=== PATIENT | female | born 1970 | race Caucasian/White ===

== ENCOUNTER → 2018-04-09 | Outpatient (CLI) | payer OTHER ==
[~2018-04-09] MED LIST: ALPR-429 PO; ALPR-700 PO; BCAA PO; CALC1TAB32 PO; CHOL100034 PO; CIT20 PO; DOCU-416 PO; ESC10 PO; HYDR-385 PO; HYDR50CA47 PO; MAGN500C10 PO; MILK THISTLE140 M1 PO; MULT-977 PO; NICO1PAT45 TD; OMEG300C PO; OXYC-854 PO; PHYT100T4 PO; THRIVE PO; TRAZ-133 PO; VITA40TA PO; [UNRECOGNIZED DRUG - CODE] MC; [UNRECOGNIZED DRUG - CODE] PO; [UNRECOGNIZED DRUG - OTHER]; [UNRECOGNIZED DRUG - OTHER] PO; [UNRECOGNIZED DRUG - OTHER] PO
== END ==
LOC: AUD 13:00
PROVIDERS: ATTEND Family Medicine
DX: H93.19 Tinnitus, unspecified ear (principal)
CPT/HCPCS: 92557; 92570

== ENCOUNTER → 2018-05-30 | Outpatient (CLI) | payer OTHER ==
--- NOTE | 2018-05-30 13:28 | RADIOLOGY IMAGING REPORT ---
FACILITY: [facility] PATIENT NAME: ROSALIA WATKINS : [id number] MR: [id number] V: [id number] EXAM DATE: [id number] ORDERING PHYSICIAN: GO CADTE TECHNOLOGIST: Leatha Montes PROCEDURE:BILATERAL DIGITAL SCREENING MAMMOGRAM WITH CAD ASSISTED INTERPRETATION COMPARISON:None. INDICATIONS:SCREENING FINDINGS: Again noted are bilateral breast implants. There is no evidence of implant rupture or leakage. The breasts are extremely dense which lowers the sensitivity of mammography. There has been no significant interval change. DIAGNOSTIC CATEGORY 2--BENIGN FINDING. RECOMMENDATIONS: ROUTINE MAMMOGRAM AND CLINICAL EVALUATION. IMPRESSION: BIRADS 2: Benign finding. No significant abnormality is seen. Dictated by: Emmy Pablo M.D. on 05/30/2018 at 11:30 Transcribed by: LEANNA on 05/30/2018 at 13:09 Approved by: Emmy Pablo M.D. on 05/30/2018 at 13:27 [facility]
== END ==
LOC: MAMO 00:45
PROVIDERS: ATTEND Family Medicine
DX: Z12.31 Encounter for screening mammogram for malignant neoplasm of breast (principal); Z80.3 Family history of malignant neoplasm of breast
CPT/HCPCS: 77063; 77067

== ENCOUNTER → 2018-07-26 | Outpatient (CLI) | payer OTHER ==
--- NOTE | 2018-07-26 09:39 | RADIOLOGY IMAGING REPORT ---
FACILITY: [facility] [place] PATIENT NAME: Araceli Breen : 1970 MR: [id number] V: [id number] EXAM DATE: ORDERING PHYSICIAN: GO CADET TECHNOLOGIST: Location: [facility] - [place] Patient: Araceli Breen : 1970 Visit/Account:[id number] Date of Sevice: 07/26/2018 EXAMINATION: PA and Lateral Chest 07/26/2018 9:12 AM HISTORY: Elevated CEA level. Nonsmoker. COMPARISON: 04/15/2014 FINDINGS: Cardiomediastinal contours: Normal Lungs and pleura: Normal Bones/soft tissues: Normal IMPRESSION: Stable unremarkable chest. Report Dictated By: Sarthak Mcintosh MD at 07/26/2018 9:31 AM Report E-Signed By: Sarthak Mcintosh MD at 07/26/2018 9:33 AM WSN:[email or web address]
--- NOTE | 2018-07-26 11:27 | RADIOLOGY IMAGING REPORT ---
FACILITY: [facility] - [place] PATIENT NAME: Araceli Breen : 1970 MR: [id number] V: [id number] EXAM DATE: ORDERING PHYSICIAN: GO CADET TECHNOLOGIST: Location: [facility] [place] Patient: Araceli Breen : 1970 Visit/Account:[id number] Date of Sevice: 07/26/2018 Abdominal ultrasound Indication: Elevated CEA level. Comparison: None Findings: Liver is enlarged and measures 19.5 cm in greatest sagittal length. Liver is normal in echogenicity and echotexture. Liver contours are smooth. There is normal hepatopedal portal venous flow. The spleen is normal in size, contour, and echotexture and measures 7.6 cm in length. Gallbladder wall thickness is 1.1 mm with no evidence of shadowing stone or sludge within the gallbla dder lumen. Negative sonographic Calle's sign reported by the technologist. Common duct measures 5.5 mm in maximum diameter with no evidence of shadowing stone. Within the head/body of the pancreas, there is an oval-shaped hyperechoic lesion identified which rip sures 7 mm x 5 mm x 13 mm in size. This is indeterminant. Abdominal aorta and IVC are patent and unremarkable. The bilateral kidneys are normal in size, contour, and echotexture with the right kidney measuring 1 1.4 cm and the left kidney measuring 11.1 cm. There are extrarenal pelves bilaterally. IMPRESSION: 1. Mild hepatomegaly. 2. Indeterminant 13 mm hyperechoic lesion within the head of the pancreas. This could simply repres ent a lipoma or invaginated retroperitoneal fat but this is incompletely evaluated. Further workup i s recommended with a dedicated pancreatic protocol CT or MRI scan. Report Dictated By: Tristan Herbert at 07/26/2018 11:16 AM Report E-Signed By: Tristan Herbert at 07/26/2018 11:23 AM WSN:[email or web address]
--- NOTE | 2018-07-26 11:31 | RADIOLOGY IMAGING REPORT ---
[facility] PATIENT NAME: Araceli Breen : 1970 MR: [id number] V: [id number] EXAM DATE: ORDERING PHYSICIAN: GO CADET TECHNOLOGIST: [place] [facility] [place]aceli Breen : 1970 Visit/Account:[id number] Date of Sevice: 07/26/2018 Transvaginal and transabdominal pelvic ultrasound INDICATION: Elevated CEA levels. COMPARISON: None Available FINDINGS: Uterus measures 6.7 x 3.7 x 5.7 cm and is retroflexed/retroverted. Double wall endometrial stripe measures 3 mm. There is a small volume of free fluid in the cul-de-sac. Urinary bladder is distended with urine on the transabdominal portion of the exam. Pelvic vessels appear unremarkable on this examination. Right ovary measures 2.8 x 1.0 x 1.4 cm and shows normal blood flow. Left ovary measures 2.2 x 1.9 x 0.9 cm and shows normal blood flow. IMPRESSION: 1. Thinning/atrophy of the endometrial echo complex measuring 3 mm. 2. Small volume of nonspecific free pelvic fluid. Report Dictated By: Tristan Herbert at 07/26/2018 11:23 AM Report E-Signed By: Tristan Herbert at 07/26/2018 11:27 AM WSN:[email or web address]
== END ==
LOC: US 00:48
PROVIDERS: ATTEND Family Medicine
DX: N85.8 Other specified noninflammatory disorders of uterus (principal); R16.0 Hepatomegaly, not elsewhere classified
CPT/HCPCS: 71046; 76700; 76830; 76856

== ENCOUNTER → 2018-08-13 | Outpatient (CLI) | payer OTHER ==
[~2018-08-13] MED LIST changes: +CELE-1 PO; +IOPAMIDOL 76% 100 ML INFUS BTL 100 ML ONE; +MULT1CAP59 PO; +PROG100C PO
--- NOTE | 2018-08-13 12:00 | RADIOLOGY IMAGING REPORT ---
FACILITY: [facility] [place] PATIENT NAME: Araceli Breen : 1970 MR: [id number] V: [id number] EXAM DATE: ORDERING PHYSICIAN: GO CADET TECHNOLOGIST: Location: [facility] Patient: Araceli Breen : 1970 Visit/Account:[id number] Date of Sevice: 08/13/2018 CT ABDOMEN WITH AND WITHOUT CONTRAST CLINICAL INFORMATION: Cyst on pancreas TECHNIQUE: Axial CT images were obtained through the abdomen before and after injection of nonionic iodinated intravenous contrast. Reformatted coronal and sagittal images were also obtained. Pre cont rast and delayed images were obtained. Dose Lowering Technique One of the following dose optimization techniques was utilized in the performance of this exam: Autom ated exposure control; adjustment of the mA and/or kV according to the patient's size; or use of an i terative reconstruction technique. Specific details can be referenced in the facility's radiology C T exam operational policy. CONTRAST: 75ml of IV Isovue-370 contrast. COMPARISON: Abdomen ultrasound July 26, 2018. FINDINGS: Lower lung campos: Coarse linear stranding in the lung bases may represent scarring versus atelectasi s Liver: Hepatomegaly with right lobe measuring 21.5 cm in length Biliary: Gallbladder appears unremarkable as well as the intra and extra hepatic biliary system. Pancreas: No definite abnormalities identified at the head of the pancreas to account for the 13 mm h yperechoic region seen on the recent ultrasound Spleen: Normal appearance. Adrenal glands: Unremarkable. Kidneys / retroperitoneum: No evidence of nephrolithiasis or hydronephrosis Bowel / peritoneum / mesenteries: The visualized small and large bowel appear unremarkable. Vessels: No significant atherosclerotic calcification seen throughout a nonaneurysmal abdominal aorta and branches. Musculoskeletal / Body wall: No acute or aggressive osseous abnormality. Lymph node assessment: No pathologic adenopathy identified. IMPRESSION: 1. No definite abnormality identified to account for the 1.3 mm hyperechoic region seen in the head the pancreas on a recent ultrasound. If this remains of clinical concern MR the pancreas is recommen ded Hepatomegaly Coarse linear stranding in the lung bases may represent scarring versus atelectasis 2. 3. Report Dictated By: Emmy Pablo MD at 08/13/2018 11:32 AM Report E-Signed By: Emmy Pablo MD at 08/13/2018 11:55 AM WSN:[email or web address]
== END ==
LOC: CT 01:07
PROVIDERS: ATTEND Family Medicine
DX: R16.0 Hepatomegaly, not elsewhere classified (principal); R91.8 Other nonspecific abnormal finding of lung field
CPT/HCPCS: 74170; Q9967

== ENCOUNTER 2018-08-15 07:00 | Day surgery (SDC) | payer OTHER ==
[~2018-08-15] VITALS: Ht 162.6 cm; Wt 55.3 kg
[2018-08-15] VITALS (8 sets, daily range): BP systolic 97–126; BP diastolic 50–85
[~2018-08-15 07:00] MED LIST changes: -IOPAMIDOL 76% 100 ML INFUS BTL 100 ML ONE
[2018-08-15] MEDS ORDERED: LIDOCAINE MPF 1% 5 ML VIAL ONE (11:29)
[2018-08-15] MEDS ORDERED: PROPOFOL EMUL(*) 10MG/ML 20 ML 40 ML ONE (11:29)
[2018-08-15] MEDS ORDERED: LIDOCAINE/SOD BICARB 8.4% SYR ID ONE (11:30)
[2018-08-15] MEDS ORDERED: NORMOSOL R SOLN(*) 1000 ML BAG 1,000 ML IV PRN (11:30)
[2018-08-15] MEDS ORDERED: PROPOFOL EMUL(*) 10MG/ML 20 ML 20 ML ONE (12:43)
--- NOTE | 2018-08-15 13:06 | Short(Outpt) Discharge Summary ---
Discharge Summary Reason for Hosp/Final Diag: (1) Colon cancer screening Status: Chronic Hospital Course & Plan: Colonoscopy with polypectomy x6 completed without problems. (2) Elevated CEA Status: Chronic Hospital Course & Plan: No colon cancer or other reason for elevated CEA on this study. Departure Discharge to: Home, Self Care Discharge Instructions Home Meds Reported Medications Multivitamin (MULTIVITAMINS) 1 Each Capsule, 1 EACH PO QDAY, CAPSULE 08/10/18 Celecoxib (CELEBREX) 200 Mg Capsule, 200 MG PO PRN, CAPSULE 08/06/18 Progesterone,Micronized (PROGESTERONE) 100 Mg Capsule, 100 MG PO DAILY, CAPSULE 08/06/18 Whey Protein Isolate (WHEY PROTEIN ISOLATE) 1 Gm Powder, 1 GM MC BID 02/25/16 [Lanolic Acid] No Conflict Check, 1 CAP PO BID 02/25/16 Cholecalciferol (Vitamin D3) (Vitamin D3) 10,000 Unit Capsule, 1 CAP PO QDAY 02/25/16 Vitamin K2 (VITAMIN K2) 40 Mcg Tablet, 1 TAB PO QDAY 02/25/16 [Carbogain] No Conflict Check, PO QDAY 02/25/16 [Bcaa] No Conflict Check, 5 MG PO QDAY 02/25/16 Leucine (LEUCINE) 1 Each Powd.pack, 1 EACH PO TID 02/25/16 Milk Thistle Fruit Extract (MILK THISTLE) 140 Mg Capsule, PO BID, CAPSULE 02/25/16 Wayne-3 Fatty Acids (FISH OIL) 300 Mg Capsule, 2 CAP PO QDAY, CAPSULE 02/25/16 Discontinued Reported Medications [Thrive] No Conflict Check, 2 CAP PO QDAY 02/25/16 Diet: Regular Activity: As Tolerated Special Instructions: Your colonoscopy was completed without problems and your prep was excellent (Good Job!!). I removed 6 small polyps from your colon and they were sent to pathology. YOU DO NOT HAVE COLON CANCER. The polyps do not cause an elevated CEA. My office will call you in the next couple of days to schedule a pancreas MRI to make sure there is no pancreas mass, I don't see one on the CT but the MRI will be a little more sensitive at detecting this. I suspect there is nothing abnormal in your pancreas but my office will call you in the next week or two after the MRI is completed to let you know what the polyps are and what the MRI results are and when your next colonoscopy should be (in 3, 5, or 10 years) depending on the pathology results. FAM TAVARES MD Aug 15, 2018 13:06
--- NOTE | 2018-08-15 13:07 | NUR ---
1254- PT. RECEIVED FROM OR VIA STRETCHER WITH THE [facility]. SBAR RECEIVED FROM TIM JEFFERSON AND DR. TAMAYO. SEE ADMISSION ASSESSMENT. 1300- SBAR GIVEN TO GM JEFFERSON.
--- NOTE | 2018-08-15 13:42 | NUR ---
1300: REPORT FROM Arturo BARROW RN. 1315: PT GIVEN WATER, TOLERATED WELL 1330: PT MOVED TO RA, MAINTAINING SATS
--- NOTE | 2018-08-15 14:50 | NUR ---
1340: pt states readiness to leave, pt denies food offered stating she is on a restricted diet. 1343: pt's ride is called. 1358: orthostatic bp's stable 1400: pt dressing 1405: mother at bedside, discharge instructions given, pt states understanding 1412: iv dc'ed with cath intact, pressure dressing applied 1415: pt walked to car by mother and cata cary rn
== END 2018-08-15 14:14 | disposition home or self-care (01) ==
LOC: OR 07:00
PROVIDERS: ATTEND Surgery
DX: Z12.11 Encounter for screening for malignant neoplasm of colon (principal); D12.5 Benign neoplasm of sigmoid colon; D12.3 Benign neoplasm of transverse colon; K63.5 Polyp of colon; K62.1 Rectal polyp
CPT/HCPCS: 00811; 45385; 88305; J2001; J2704

== ENCOUNTER → 2018-09-06 | Outpatient (CLI) | payer OTHER ==
[~2018-09-06] MED LIST changes: +GADOBENATE 529MG/1ML 15ML VIAL IVP ONE; +NS 0.9% 25 ML BAG 25 ML ONE
--- NOTE | 2018-09-06 14:14 | RADIOLOGY IMAGING REPORT ---
FACILITY: [facility] PATIENT NAME: Araceli Breen : 1970 MR: [id number] V: [id number] EXAM DATE: ORDERING PHYSICIAN: FAM TAVARES TECHNOLOGIST: Location: [facility] Patient: Araceli Breen : 1970 Visit/Account:[id number] Date of Sevice: 09/06/2018 MR ABDOMEN W & W/O CON HISTORY: Pancreatic lesion on US TECHNIQUE: Multiplanar multisequence magnetic resonance imaging of the abdomen without and with intr avenous contrast. Magnetic resonance cholangiopancreatography (MRCP) was also performed. CONTRAST: 13 mL MultiHance IV COMPARISON: CT 08/13/2018, ultrasound 07/26/2018 FINDINGS: Visualized lung bases: Negative. Liver: Mildly enlarged but otherwise unremarkable. Gallbladder: Not able to be visualized, either fully decompressed or surgically absent since prior ex ams. Bile ducts: Nondistended and grossly unremarkable. Spleen: Negative. Adrenals: Negative. Pancreas: Parenchyma well preserved. Main duct nondistended. Just right lateral to superior mesent eddie vein, within the pancreatic head/uncinate process and region of findings on prior ultrasound, th e parenchyma appears homogeneous without lipoma or other discrete mass. Kidneys/: Negative. Visualized GI: Negative. Vessels/spaces/nodes: No bulky adenopathy. No free fluid. Bones/soft tissues: Breast implants, incompletely visualized. Minimal disc degenerative changes mid to inferior lumbar spine. IMPRESSION: 1. No MR evident pancreatic lesion corresponding with findings on prior ultrasound. 2. Mild hepatomegaly. Report Dictated By: Estevan Grider MD at 09/06/2018 1:53 PM Report E-Signed By: Estevan Grider MD at 09/06/2018 2:09 PM WSN:[email or web address]
== END ==
LOC: MRI 01:01
PROVIDERS: ATTEND Surgery
DX: K86.9 Disease of pancreas, unspecified (principal)
CPT/HCPCS: 74183; A9577

== ENCOUNTER → 2018-10-10 | Outpatient (REF) | payer OTHER ==
[~2018-10-10] MED LIST changes: -GADOBENATE 529MG/1ML 15ML VIAL IVP ONE; -NS 0.9% 25 ML BAG 25 ML ONE
== END ==
LOC: ZZSENDIN 14:51
PROVIDERS: ATTEND Family Medicine
DX: R60.0 Localized edema (principal)
CPT/HCPCS: 85379

== ENCOUNTER → 2018-10-11 | Outpatient (CLI) | payer OTHER ==
--- NOTE | 2018-10-11 11:27 | RADIOLOGY IMAGING REPORT ---
FACILITY: [facility] - [place] PATIENT NAME: Araceli Breen : 1970 MR: [id number] V: [id number] EXAM DATE: ORDERING PHYSICIAN: BILLY GALICIA TECHNOLOGIST: Location: [facility] Patient: Araceli Breen : 1970 Visit/Account:[id number] Date of Sevice: 10/11/2018 Exam type: US VENOUS LOWER EXT LT History: Calf pain and swelling Comparison: None. Findings: The left lower extremity veins were imaged including the left common femoral vein, greater saphenous vein, superficial femoral vein, popliteal vein, posterior tibial vein peroneal vein and anterior tibi al veins revealing no evidence of intraluminal thrombi. The veins were compressible and demonstrated augmentation IMPRESSION: 1. No sonographic evidence DVT involving the left lower extremity veins Results were called to BILLY GALICIA at 10/11/2018 11:19 AM. Report Dictated By: Emmy Pablo MD at 10/11/2018 10:41 AM Report E-Signed By: Emmy Pablo MD at 10/11/2018 11:22 AM WSN:[email or web address]
== END ==
LOC: US 09:40
PROVIDERS: ATTEND Family Medicine
DX: R60.0 Localized edema (principal)